=== PATIENT | female | born 1975 | race Caucasian/White ===

== ENCOUNTER 2016-10-31 20:16 | Emergency (ER) | payer OTHER ==
[~2016-10-31] VITALS: Ht 172.7 cm; Wt 117.0 kg
[~2016-10-31 20:16] MED LIST: GARL1CAP5 PO; PREN1TAB29 PO; SENN-65 PO
[2016-10-31 20:38] VITALS: TEMP 37; Ht 172.7 cm; Wt 117.0 kg
[2016-10-31] MEDS ORDERED: MAGN250T3 PO (22:57)
[2016-10-31] MEDS ORDERED: MILK200C PO (22:57)
[2016-10-31] MEDS ORDERED: MULT-513 PO (22:58)
[2016-10-31] MEDS ORDERED: DiphenhydrAMINE HCL 50 MG/ML VIAL IV STA (23:07)
[2016-10-31] MEDS ORDERED: METOCLOPRAMIDE HCL INJ 5 MG/ML 2 ML VIAL IV STA (23:07)
[2016-10-31] MEDS ORDERED: OPTIRAY 320 IV PRN (23:15)
[2016-10-31 23:36] LABS: BASO % 0.7 %; BASO ABS # 0.05 K/uL (0-0.2); COMPLETE YES; LYMPH % 36.6 %; LYMPH ABS # 2.81 K/uL (1.2-3.4); MEAN CELL VOLUME 95.2 fL (80-100); MEAN CORPUSCULAR HGB CONC 35.7 g/dl (32-36); MONO % 6.8 %; NEUT % 51.9 %; PLATELET COUNT 262 K/uL (130-400); RED BLOOD COUNT 4.83 M/uL (4.2-5.4); WHITE BLOOD COUNT 7.67 K/uL (4.8-10.8)
[2016-10-31 23:56] LABS: ALT/SGPT 34 U/L (12-78); AST/SGOT 16 U/L (15-37); BLOOD UREA NITROGEN 9 mg/dl (7-18); BUN/CREATININE RATIO 12.3 (10-20); CALCIUM 8.7 mg/dl (8.5-10.1); CARBON DIOXIDE 24 mmol/L (21-32); CHLORIDE 107 mmol/L (98-107); CREATININE 0.72 mg/dl (0.60-1.20); GLUCOSE 92 mg/dl (70-99); POTASSIUM 3.8 mmol/L (3.5-5.1); SODIUM 141 mmol/L (136-145)
[2016-11-01] LABS: ALB/GLOB RATIO 1.1 (0.9-2); ALKALINE PHOSPHATASE 51 U/L (45-117)
[2016-11-01 00:02] LABS: URINE APPEARANCE CLEAR (CLEAR); URINE BILIRUBIN NEG (NEG); URINE COLOR YELLOW; URINE NITRITE NEG (NEG); URINE SPECIFIC GRAVITY 1.016 (1.000-1.030); UROBILINOGEN NEG (NEG); ZZUR CULT IF INDIC CLEAN CATCH NO
[2016-11-01 00:06] LABS: MANUAL MICROSCOPIC REQUIRED? NO; REVIEW REQ? NO
[2016-11-01 00:24] VITALS: PULSE 78; O2SAT 96
--- NOTE | 2016-11-01 00:37 | EMERGENCY ROOM VISIT NOTE ---
History Report prepared by Jer: Rommel Lyons Under the Supervision of: Dr. Malathi Zeng D.O. First contact with patient: 22:54 Chief Complaint: PAIN (GENERALIZED) Stated Complaint: PRESSURE IN BOWEL History of Present Illness The patient is a 41 year old female who presents to the Emergency Room with complaints of constant RUQ abdominal "pressure" beginning four days ago. She has a history of a cholecystectomy and chronic constipation. She also complains of diarrhea and nausea. The patient notes that she feels very anxious. She states that she has been having problems with pressure in her abdomen for over seven years. She is scheduled for a cervical biopsy tomorrow due to a prior abnormal pap smear. The patient denies any black or bloody stool, vomiting, fevers, or chills. She has a history of hemorrhoids. No trigger or pattern for the intermittent pressure she feels. Source of History: patient Onset: Four days ago Position: abdomen (RUQ) Quality: pressure Timing: constant Associated Symptoms: + nausea, + diarrhea, No fevers, No chills, No vomiting , No melena, No hematochezia Review of Systems See HPI for pertinent positives & negatives. A total of 10 systems reviewed and were otherwise negative. Past Medical & Surgical Medical Problems: (1) Knee pain (2) No Known Active Medical Problems Surgical Problems: (1) H/O knee surgery (2) Hx of cholecystectomy Family History No pertinent family history stated. Social History Smoking Status: Current Every Day Smoker Marital Status: Housing Status: lives with family Current/Historical Medications Scheduled Magnesium (Magnesium 250 mg), 1 TAB PO DAILY Milk Thistle (Silybum [place] (Milk Thistle), 1 CAP PO DAILY Multivitamins/Minerals (Mvi With Minerals), 1 TAB PO DAILY Scheduled PRN Senna/Docusate Sod (Senokot S), 1 TABS PO HS PRN for Constipation Allergies Coded Allergies: Buspirone (Verified Allergy, Unknown, Unknown, 06/30/15) Amoxicillin (Unverified Adverse Reaction, Mild, VOMITING, FEVER, 11/01/16) Metoclopramide (Unverified Adverse Reaction, Mild, CREAPY CRAWLING FEELING , 10/10/09) Penicillins (Unverified Adverse Reaction, Mild, VOMITING, FEVER, 11/01/16) Propoxyphene (Unverified Adverse Reaction, Mild, VOMITING, 10/10/09) Physical Exam Vital Signs Date Time Temp Pulse Resp B/P (MAP) Pulse Ox O2 Delivery O2 Flow Rate FiO2 11/01/16 02:20 154/105 11/01/16 00:24 78 18 133/100 96 Room Air 10/31/16 20:38 37.0 91 18 157/99 95 Room Air Physical Exam GENERAL: alert, well appearing, well nourished, no distress, non-toxic EYE EXAM: normal conjunctiva, PERRL and EOM's grossly intact OROPHARYNX: no exudate, no erythema, lips, buccal mucosa, and tongue normal and mucous membranes are moist NECK: supple, no nuchal rigidity, no adenopathy, non-tender LUNGS: Clear to auscultation. Normal chest wall mechanics HEART: no murmurs, S1 normal and S2 normal ABDOMEN: abdomen soft, non-tender, normo-active bowel sounds, no masses, no rebound or guarding. BACK: Back is symmetrical on inspection and there is no deformity, no midline tenderness, no CVA tenderness. SKIN: no rashes and no bruising UPPER EXTREMITIES: upper extremities are grossly normal. LOWER EXTREMITIES: No pitting edema. NEURO EXAM: Normal sensorium, cranial nerves II-XII grossly intact, normal speech, no gross weakness of arms, no gross weakness of legs. Medical Decision & Procedures ER Provider Diagnostic Interpretation: CT abdomen and pelvis: Normal appendix visualized. Unremarkable small and large bowel. No acute inflammatory process or obstruction. Surgical VISUALIZED from cholecystectomy. No abscess was in gallbladder fossa. No intrahepatic or extrahepatic biliary ductal dilatation. Right mid pole renal cyst, 1.9 cm. Sips and them your low- density lesion within the left lower pole kidney, most likely represents a cyst also. Read by radiologist emilie Wallace M.D. Laboratory Results 10/31/16 23:20 Red Blood Count 4.83, Mean Corpuscular Volume 95.2, Mean Corpuscular Hemoglobin 34.0, Mean Corpuscular Hemoglobin Concent 35.7, Mean Platelet Volume 10.0, Neutrophils (%) (Auto) 51.9, Lymphocytes (%) (Auto) 36.6, Monocytes (%) (Auto) 6.8, Eosinophils (%) (Auto) 4.0, Basophils (%) (Auto) 0.7, Neutrophils # (Auto) 3.98, Lymphocytes # (Auto) 2.81, Monocytes # (Auto) 0.52, Eosinophils # (Auto) 0.31, Basophils # (Auto) 0.05 10/31/16 23:20 Test 10/31/16 23:20 White Blood Count 7.67 K/uL (4.8-10.8) Red Blood Count 4.83 M/uL (4.2-5.4) Hemoglobin 16.4 g/dL (12.0-16.0) Hematocrit 46.0 % (37-47) Mean Corpuscular Volume 95.2 fL (80-100) Mean Corpuscular Hemoglobin 34.0 pg (25-34) Mean Corpuscular Hemoglobin Concent 35.7 g/dl (32-36) Platelet Count 262 K/uL (130-400) Mean Platelet Volume 10.0 fL (7.4-10.4) Neutrophils (%) (Auto) 51.9 % Lymphocytes (%) (Auto) 36.6 % Monocytes (%) (Auto) 6.8 % Eosinophils (%) (Auto) 4.0 % Basophils (%) (Auto) 0.7 % Neutrophils # (Auto) 3.98 K/uL (1.4-6.5) Lymphocytes # (Auto) 2.81 K/uL (1.2-3.4) Monocytes # (Auto) 0.52 K/uL (0.11-0.59) Eosinophils # (Auto) 0.31 K/uL (0-0.5) Basophils # (Auto) 0.05 K/uL (0-0.2) RDW Standard Deviation 43.0 fL (36.4-46.3) RDW Coefficient of Variation 12.4 % (11.5-14.5) Immature Granulocyte % (Auto) 0.0 % Immature Granulocyte # (Auto) 0.00 K/uL (0.00-0.02) Urine Color YELLOW Urine Appearance CLEAR (CLEAR) Urine pH 5.0 (4.5-7.5) Urine Specific [place] 1.016 (1.000-1.030) Urine Protein NEG (NEG) Urine Glucose (UA) NEG (NEG) Urine Ketones 1+ (NEG) Urine Occult Blood NEG (NEG) Urine Nitrite NEG (NEG) Urine Bilirubin NEG (NEG) Urine Urobilinogen NEG (NEG) Urine Leukocyte Esterase NEG (NEG) Anion Gap 10.0 mmol/L (3-11) Est Creatinine Clear Calc Drug Dose 139.6 ml/min Estimated GFR () 121.4 Estimated GFR (Non- 104.8 BUN/Creatinine Ratio 12.3 (10-20) Lactic Acid Level 1.0 mmol/L (0.4-2.0) Calcium Level 8.7 mg/dl (8.5-10.1) Total Bilirubin 0.7 mg/dl (0.2-1) Aspartate Amino Transf (AST/SGOT) 16 U/L (15-37) Alanine Aminotransferase (ALT/SGPT) 34 U/L (12-78) Alkaline Phosphatase 51 U/L (45-117) Troponin I < 0.015 ng/ml (0-0.045) Total Protein 7.5 gm/dl (6.4-8.2) Albumin 4.0 gm/dl (3.4-5.0) Globulin 3.5 gm/dl (2.5-4.0) Albumin/Globulin Ratio 1.1 (0.9-2) Lipase 90 U/L (73-393) Laboratory results per my review. ED Course 2257: The patient was evaluated in room A11A. A complete history and physical exam was performed. 2307: Ordered Benadryl Inj 25 mg IV, Reglan Inj 10 mg IV. 0213: Patient updated on the results. No current nausea or vomiting, mild right upper quadrant pressure similar to prior episodes. Discussed need for follow-up with GI, discussed possible differential diagnosis, she verbalized understanding was agreeable with plan. Medical Decision Differential diagnoses includes but is not limited to gastritis, peptic ulcer disease, GERD, gallbladder disease, pancreatitis, small bowel obstruction, acute coronary syndrome, pericarditis, ischemic bowel, irritable bowel disease, irritable bowel syndrome, appendicitis, diverticulitis, malignancy, hernia, urinary tract infection, torsion, /ectopic , perforation, trauma, infectious. Pt with chronic intermittent abdominal pain and difficulty with access to care. Discussed with case mgmt referral to new PCP or GI. Pt hasn't been seen by GI despite several PCP visits. No acute change or pathology noted on this visit. Labs/imaging reassuring, stable VS throughout. Discomfort consistent with prior episodes, no new trauma/meds/food. Doubt occult infectious etiology. Discussed likely need for GI evaluation and additional testing. Discussed with pt sx to watch/return for, she verbalized understanding and was agreeable with plan. Medication Reconcilliation Current Medication List: was personally reviewed by me Blood Pressure Screening Patient's blood pressure: Elevated blood pressure Blood pressure disposition: Elevated BP felt to be situational Impression Primary Impression: Abdominal pain Scribe Attestation The scribe's documentation has been prepared under my direction and personally reviewed by me in its entirety. I confirm that the note above accurately reflects all work, treatment, procedures, and medical decision making performed by me. Departure Information Dispostion Home / Self-Care Referrals No Doctor, Assigned (PCP) Patient Instructions My [facility] Additional Instructions Please call and follow-up as soon as possible. Please try to find a new family physician and discuss with them referral to a GI specialist given the persistence of your discomfort. Please avoid any significant dietary changes, or acidic foods which may irritate your stomach. If you develop worsening pain , fevers or chills, noticed black or bloody stools, have persistent vomiting, or you've any other new concerns, please return the emergency room. Problem Qualifiers Primary Impression: Abdominal pain Abdominal location: right upper quadrant Qualified Codes: R10.11 - Right upper quadrant pain
[2016-11-01 02:20] VITALS: BP 154/105
--- NOTE | 2016-11-01 07:38 | DIAGNOSTIC IMAGING REPORT ---
ABD/PELVIS IV CONTRAST ONLY CT DOSE: 1605.23 mGy.cm HISTORY: Pain rug pain, s/p cholecystectomy TECHNIQUE: Multiaxial CT images of the abdomen and pelvis were performed following the use of intravenous contrast. A dose lowering technique was utilized adhering to the principles of ALARA. COMPARISON STUDY: 10/21/2009 FINDINGS: The lung bases are clear. The liver, spleen, gallbladder, pancreas, kidneys, and adrenal glands are within normal limits. No bowel wall thickening or obstruction. The pelvic organs are unremarkable. No suspicious lytic or blastic osseous lesions. Prior cholecystectomy. Small bilateral renal cysts unchanged from the prior exam. Nonobstructive bowel pattern. Very small bilateral ovarian follicular cyst. Normal appendix. IMPRESSION: No acute process. The above report was generated using voice recognition software. It may contain grammatical, syntax or spelling errors. Electronically signed by: Jemal Lu M.D. 11/01/2016 7:36 AM Dictated Date/Time: 11/01/2016 7:31 AM
== END 2016-11-01 02:27 | disposition home or self-care (01) ==
LOC: C.EDB 20:17 → C.EDA 11-01 02:27
DX: R10.11 Right upper quadrant pain (principal); Z90.49 Acquired absence of other specified parts of digestive tract; K59.09 Other constipation; F17.210 Nicotine dependence, cigarettes, uncomplicated; Z79.899 Other long term (current) drug therapy